=== PATIENT | male | born 1960 | race Caucasian/White ===

== ENCOUNTER 2021-07-12 02:31 | Emergency (ER) | payer MEDICARE, BC ==
[2021-07-12] MEDS ORDERED: Aspirin 81 MG Tab.Chew PO ONE ×2 (02:38→02:42)
[2021-07-12] MEDS ORDERED: hydrALAZINE 20 MG/ML SDV IVPUSH ONE (02:49)
--- NOTE | 2021-07-12 02:49 | EDM.PDOC ---
ED HPI GENERAL MEDICAL PROBLEM - General Stated Complaint: CHEST PAIN Time Seen by Provider: 07/12/21 02:35 Source of Information: Reports: Patient History Limitations: Reports: No Limitations - History of Present Illness INITIAL COMMENTS - FREE TEXT/NARRATIVE: 61-year-old gentleman came to the emergency department by private vehicle for evaluation of chest pain. He states that approximately 9 PM tonight he began to have a feeling of a pressure type of pain and points to the distal sternum. He states that he was not doing anything specific when the pain started. He has not tried anything to relieve the pain. He states that he forgot to take his blood pressure medication, valsartan, on Monday morning because he has been out camping and simply forgot but that he did take his blood pressure medication the previous day and days. He states that he did drink a little more beer than usual but has had no new foods. He has not had this type of chest pain in the past and does not have a history of GERD. He was able to go to sleep but he awoke with chest pain and mild diaphoresis and shortness of breath. He does have a CPAP and uses his CPAP nightly. He does take medication for hypertension, hyperlipidemia, and takes a baby aspirin daily but has no history of coronary artery disease. He does not have any significant family history of coronary artery disease. He is obese. He is able to lie flat at night and sleep flat. He is active in his job and has not had chest pain at work while active. Prior to this event he states that he has been in good health and has not had fever, chill, viral symptoms, cough, change in bowel or bladder habits. Middle Chest Pain Score (Numeric/FACES): 6 - Related Data Allergies Allergy/AdvReac Type Severity Reaction Status Date / Time No Known Allergies Allergy Verified 12/03/18 13:23 Home Meds: Home Meds Aspirin 81 mg PO DAILY 07/12/21 [History] Valsartan [Diovan] 40 mg PO DAILY 07/12/21 [History] atorvaSTATin [Lipitor] 10 mg PO BEDTIME 07/12/21 [History] ED ROS GENERAL - Review of Systems Review Of Systems: See Below Constitutional: Reports: No Symptoms HEENT: Reports: No Symptoms Respiratory: Reports: Shortness of Breath Cardiovascular: Reports: Chest Pain. Denies: PND Endocrine: Reports: No Symptoms GI/Abdominal: Reports: No Symptoms : Reports: No Symptoms Musculoskeletal: Reports: No Symptoms Skin: Reports: No Symptoms Neurological: Reports: No Symptoms Psychiatric: Reports: No Symptoms Hematologic/Lymphatic: Reports: No Symptoms Immunologic: Reports: No Symptoms ED EXAM, GENERAL - Physical Exam Exam: See Below Exam Limited By: No Limitations General Appearance: Alert, WD/WN, Anxious Eye Exam: Bilateral Eye: EOMI Head: Atraumatic, Normocephalic Neck: Normal Inspection. No: Lymphadenopathy (R), Lymphadenopathy (L) Respiratory/Chest: No Respiratory Distress, Lungs Clear, Normal Breath Sounds Cardiovascular: Regular Rate, Rhythm, No Gallop. No: No Edema GI/Abdominal: Normal Bowel Sounds, Non-Tender Back Exam: Normal Inspection. No: CVA Tenderness (R), CVA Tenderness (L) Extremities: Pedal Edema Neurological: Alert, Oriented, Normal Cognition Psychiatric: Anxious Skin Exam: Warm, Dry Course - Vital Signs Text/Narrative:: Review of labs and troponin x2 is negative. Incidental finding on lab work shows indication of likely fatty liver disease. Last Recorded V/S: Last Vital Signs Temp 36.7 C 07/12/21 02:45 Pulse 66 07/12/21 02:45 Resp 20 07/12/21 02:45 BP 140/76 07/12/21 02:45 Pulse Ox 100 07/12/21 02:45 - Orders/Labs/Meds Orders: Active Orders 24 hr Category Date Time Status EKG Documentation Completion [RC] ASDIRECTED Care 07/12/21 02:43 Active EKG 12 Lead [EK] Routine Ther 07/12/21 02:43 Ordered Labs: Laboratory Tests 07/12/21 07/12/21 07/12/21 Range/Units 02:45 02:45 02:45 WBC 9.0 (3.2-10.1) x10-3/uL RBC 4.69 (3.90-5.90) x10(6)uL Hgb 13.1 (12.9-17.7) g/dL Hct 38.8 (38.3-50.1) % MCV 82.6 (80.8-98.7) fL MCH 28.0 (27.0-33.3) pg MCHC 33.8 (28.7-35.3) g/dL RDW 15.5 H (12.4-15.0) % Plt Count 178 (117-477) x10(3)uL MPV 6.9 (6.7-11.0) fL Neut % (Auto) 75.3 H (40.3-71.8) % Lymph % (Auto) 14.0 L (15.8-45.3) % [place] % (Auto) 8.9 (5.5-15.2) % Eos % (Auto) 1.3 (0.1-6.8) % Baso % (Auto) 0.5 (0.3-3.8) % Neut # (Auto) 6.8 (1.7-6.9) x10-3/uL Lymph # (Auto) 1.3 (0.5-4.5) x10-3/uL [place] # (Auto) 0.8 (0.0-1.2) x10-3/uL Eos # (Auto) 0.1 (0.0-0.6) x10-3/uL Baso # (Auto) 0.0 (0.0-0.3) x10-3/uL Sodium 144 (135-145) mmol/L Potassium 4.6 (3.5-5.3) mmol/L Chloride 108 (100-110) mmol/L Carbon Dioxide 27 (21-32) mmol/L BUN 14 (7-18) mg/dL Creatinine 0.9 (0.70-1.30) mg/dL Est Cr Clr Drug Dosing TNP Estimated GFR (MDRD) > 60 (>60) BUN/Creatinine Ratio 15.6 (9-20) Glucose 124 H (80-116) mg/dL Calcium 8.5 L (8.6-10.2) mg/dL Total Bilirubin 2.1 H (0.1-1.3) mg/dL AST 104 H (5-25) IU/L ALT 93 H (12-36) U/L Alkaline Phosphatase 109 (56-112) IU/L Troponin I 5.7 (4.0-60.3) pg/mL NT-Pro-B Natriuret Pep 51 (<=125) pg/mL Total Protein 6.6 (6.0-8.0) g/dL Albumin 3.6 (3.2-4.6) g/dL Globulin 3.0 g/dL Albumin/Globulin Ratio 1.2 / Range/Units 05:55 WBC (3.2-10.1) x10-3/uL RBC (3.90-5.90) x10(6)uL Hgb (12.9-17.7) g/dL Hct (38.3-50.1) % MCV (80.8-98.7) fL MCH (27.0-33.3) pg MCHC (28.7-35.3) g/dL RDW (12.4-15.0) % Plt Count (117-477) x10(3)uL MPV (6.7-11.0) fL Neut % (Auto) (40.3-71.8) % Lymph % (Auto) (15.8-45.3) % [place] % (Auto) (5.5-15.2) % Eos % (Auto) (0.1-6.8) % Baso % (Auto) (0.3-3.8) % Neut # (Auto) (1.7-6.9) x10-3/uL Lymph # (Auto) (0.5-4.5) x10-3/uL [place] # (Auto) (0.0-1.2) x10-3/uL Eos # (Auto) (0.0-0.6) x10-3/uL Baso # (Auto) (0.0-0.3) x10-3/uL Sodium (135-145) mmol/L Potassium (3.5-5.3) mmol/L Chloride (100-110) mmol/L Carbon Dioxide (21-32) mmol/L BUN (7-18) mg/dL Creatinine (0.70-1.30) mg/dL Est Cr Clr Drug Dosing Estimated GFR (MDRD) (>60) BUN/Creatinine Ratio (9-20) Glucose (80-116) mg/dL Calcium (8.6-10.2) mg/dL Total Bilirubin (0.1-1.3) mg/dL AST (5-25) IU/L ALT (12-36) U/L Alkaline Phosphatase (56-112) IU/L Troponin I 6.0 (4.0-60.3) pg/mL NT-Pro-B Natriuret Pep (<=125) pg/mL Total Protein (6.0-8.0) g/dL Albumin (3.2-4.6) g/dL Globulin g/dL Albumin/Globulin Ratio Meds: Medications Discontinued Medications Generic Name Dose Route Start Last Admin Trade Name Ping PRN Reason Stop Dose Admin Aspirin 324 mg 07/12/21 02:38 07/12/21 02:42 Aspirin 81 Mg Tab.Chew PO 07/12/21 02:39 324 mg ONETIME ONE Administration Aspirin 324 mg 07/12/21 02:42 07/12/21 02:50 Aspirin 81 Mg Tab.Chew PO 07/12/21 02:43 Not Given ONETIME ONE Hydralazine HCl 10 mg 07/12/21 02:49 07/12/21 02:52 Hydralazine 20 Mg/Ml Sdv IVPUSH 07/12/21 02:50 10 mg ONETIME ONE Administration Departure - Departure Time of Disposition: 06:29 Disposition: Home, Self-Care 01 Condition: Good Clinical Impression: Acute coronary syndrome without high troponin, Elevated liver enzymes Instructions: Acute Coronary Syndrome, Decision Aid - Coronary Artery Disease Referrals: Ruth De Los Santos [employer]INTENA[employer] TECHNICIAN [Primary Care Provider] - Additional Instructions: I informed the patient of the labs that showed elevated liver enzymes and advised him to follow-up with his primary care physician. Patient advised to follow-up with his primary care physician immediately regarding likely acute coronary syndrome and need for evaluation by cardiology. Sepsis Event Note (ED) - Focused Exam Vital Signs: Vital Signs Temp Pulse Resp BP Pulse Ox 07/12/21 02:45 36.7 C 66 20 140/76 100 07/12/21 02:35 36.7 C 70 22 H 206/113 H 100 - My Orders Last 24 Hours: My Active Orders 07/12/21 02:43 EKG Documentation Completion [RC] ASDIRECTED EKG 12 Lead [EK] Routine - Assessment/Plan Last 24 Hours: My Active Orders 07/12/21 02:43 EKG Documentation Completion [RC] ASDIRECTED EKG 12 Lead [EK] Routine
--- NOTE | 2021-07-12 03:07 | PCM.EKG ---
#1 Interpretation EKG Date: 07/12/21 Time: 02:28 EKG Interpretation Comments: Normal sinus rhythm, normal axis, rate 66, no obvious ST-T segment abnormalities
== END 2021-07-12 06:43 | disposition home or self-care (01) ==
LOC: FB.ED 02:31
DX: I24.9 Acute ischemic heart disease, unspecified (principal); R60.0 Localized edema; R74.8 Abnormal levels of other serum enzymes; Z79.899 Other long term (current) drug therapy
CPT/HCPCS: 36415; 80053; 83880; 84484; 85025; 93005; 96374; 99285; A9270; J0360

== ENCOUNTER 2021-09-08 10:32 | Day surgery (SDC) | payer MEDICARE, BC ==
[~2021-09-08 10:32] MED LIST: Acetaminophen 500 MG Tab PO ONE; Albuterol/Ipratropium 3.0-0.5 MG/3 ML Neb Soln NEB ONE; Lactated Ringers 1,000 ML IV SCH; Ondansetron 8 MG Tab.DIS PO ONE; Sodium Chloride 0.9% 10 ML Syringe FLUSH PRN
[2021-09-08] MEDS ORDERED: Neostigmine Methylsulfate 10 MG/10 ML MDV IVPUSH ONE (10:33)
[2021-09-08] MEDS ORDERED: Glycopyrrolate 0.2 MG/ML 5 ML MDV IV ONE (10:33)
[2021-09-08] MEDS ORDERED: hydrALAZINE 20 MG/ML SDV IVPUSH ONE (10:33)
[2021-09-08] MEDS ORDERED: Lactated Ringers 1,000 ML IV ONE (10:33)
[2021-09-08] MEDS ORDERED: Succinylcholine 200 MG/10 ML MDV IV ONE (10:33)
[2021-09-08] MEDS ORDERED: Lidocaine 2% 5 ML SDV INJECT ONE (10:33)
[2021-09-08] MEDS ORDERED: HYDROmorphone 2 MG/ML SDV IV ONE (10:33)
[2021-09-08] MEDS ORDERED: Rocuronium 100 MG/10 ML MDV IV ONE (10:33)
[2021-09-08] MEDS ORDERED: Dexamethasone 4 MG/ML 5 ML MDV IVPUSH ONE (10:33)
[2021-09-08] MEDS ORDERED: Propofol 200 MG/20 ML SDV IV ONE (10:33)
[2021-09-08] MEDS ORDERED: Midazolam 1 MG/ML 2 ML SDV IV ONE (10:33)
[2021-09-08] MEDS ORDERED: Ondansetron 4 MG/2 ML SDV IVPUSH ONE (10:33)
--- NOTE | 2021-09-08 12:18 | PCM.PN ---
- General Info Date of Service: 09/08/21 - Review of Systems Systems Review Comment:: 61 y/o male with history of gallstones here for cholecystectomy. He is medically stable to proceed with no recent significant changes to his health status. I have discussed again the proposed cholecystectomy and instructions and expectations. He agrees to proceed accepting risks. - Patient Data Vitals - Most Recent: Last Vital Signs Temp 97.2 F 09/08/21 10:59 Pulse 57 L 09/08/21 10:59 Resp 16 09/08/21 10:59 BP 121/73 09/08/21 10:59 Pulse Ox 96 09/08/21 10:59 Weight - Most Recent: 280 lb 13.903 oz Med Orders - Current: Current Medications Lactated Ringer's (Ringers, Lactated) 1,000 mls @ 125 mls/hr IV ASDIRECTED FERCHO Last Admin: 09/08/21 11:16 Dose: 125 mls/hr Documented by: Cefazolin Sodium 3 gm/ Sodium (Chloride) 100 mls @ 200 mls/hr IV ONETIME ONE Stop: 09/08/21 12:29 Last Admin: 09/08/21 11:23 Dose: 200 mls/hr Documented by: Sodium Chloride (Sodium Chloride 0.9% 10 Ml Syringe) 10 ml FLUSH ASDIRECTED PRN PRN Reason: Keep Vein Open Discontinued Medications Acetaminophen (Acetaminophen 500 Mg Tab) 1,000 mg PO ONETIME ONE Stop: 09/08/21 10:31 Last Admin: 09/08/21 11:05 Dose: 1,000 mg Documented by: Albuterol/Ipratropium (Albuterol/Ipratropium 3.0-0.5 Mg/3 Ml Neb Soln) 3 ml NEB ONETIME ONE Stop: 09/08/21 10:31 Last Admin: 09/08/21 11:06 Dose: 3 ml Documented by: Ondansetron HCl (Ondansetron 8 Mg Tab.Dis) 8 mg PO ONETIME ONE Stop: 09/08/21 10:31 Last Admin: 09/08/21 11:04 Dose: 8 mg Documented by: Sepsis Event Note - Focused Exam Vital Signs: Vital Signs Temp Pulse Resp BP Pulse Ox 09/08/21 10:59 97.2 F 57 L 16 121/73 96 - Problem List Review Problem List Initiated/Reviewed/Updated: Yes - My Orders Last 24 Hours: My Active Orders 09/07/21 12:20 Resuscitation Status Routine 09/08/21 Breakfast Nothing Per Oral Diet [DIET] 09/08/21 10:30 Patient Status [ADT] Routine Patient to Empty Bladder [RC] ASDIRECTED Verify Patient Consent Obtain [RC] ASDIRECTED Lactated Ringers [Ringers, Lactated] 1,000 ml IV ASDIRECTED Sodium Chloride 0.9% [Saline Flush] 10 ml FLUSH ASDIRECTED PRN Peripheral IV Insertion Adult [OM.PC] Routine Sequential Compression Device [OM.PC] Routine 09/08/21 12:00 ceFAZolin [Ancef] 3 gm Sodium Chloride 0.9% [Normal Saline] 100 ml IV ONETIME - Assessment Assessment:: Cholelithiasis - Plan Plan:: Cholecystectomy
[2021-09-08] MEDS ORDERED: Bupivacaine 0.5%/EPINEPHrine 1:200,000 10 ML SDV INJECT ONE (12:24)
--- NOTE | 2021-09-08 13:57 | PCM.OPNOTE ---
- General Post-Op/Procedure Note Date of Surgery/Procedure: 09/08/21 Operative Procedure(s): Laparoscopic Cholecystectomy Findings: Gallbladder with chronic inflammation and multiple small black stones Pre Op Diagnosis: Symptomatic Cholelithiasis Post-Op Diagnosis: Chronic Cholecystitis with Cholelithiasis Anesthesia Technique: MAC Primary Surgeon: Song Purcell Pathology: Gallbladder with stones EBL in mLs: 30 Complications: None Condition: Good
[2021-09-08] MEDS ORDERED: Acetaminophen/HYDROcodone 325-5 MG Tab PO ONE (14:32)
--- NOTE | 2021-09-08 16:14 | OR ---
DATE OF OPERATION: 09/08/2021 SURGEON: Song Purcell MD PREOPERATIVE DIAGNOSIS: Symptomatic cholelithiasis. POSTOPERATIVE DIAGNOSIS: Chronic cholecystitis with cholelithiasis. OPERATION PERFORMED: Laparoscopic cholecystectomy. INDICATIONS FOR SURGERY: This 61-year-old male has a known history of symptomatic cholelithiasis and comes for cholecystectomy. FINDINGS: The patient's gallbladder does show evidence of chronic inflammation. There is dense adherence of the gallbladder to the liver bed. The gallbladder does contain multiple small black stones. No other abnormalities are noted laparoscopically. PROCEDURE: The patient was taken to the operating room. He was given general endotracheal anesthesia, and the abdomen was sterilely prepped and draped. A supraumbilical stab wound incision was made. Through this, a Veress needle was inserted and pneumoperitoneum via this needle to a pressure of 15 mmHg was achieved with carbon dioxide. The Veress needle was then replaced with a 12 mm trocar into which the 5 mm variable angled laparoscopic camera was inserted. Under direct visualization, 5 mm trocars were placed in the subxiphoid midline and in two areas of the right abdomen. All trocar sites were infiltrated with Marcaine prior to incision. Intra-abdominal inspection was carried out and attention was turned to the gallbladder. It was secured with grasping forceps and retracted superiorly and anteriorly. Fatty tissue and peritoneal lining over the lower portion of the gallbladder and cystic duct were carefully cleared until the cystic duct was identified. Additional dissection in the triangle of Calot identified the cystic artery along with an adjacent lymph node, and both of these structures were isolated, doubly clipped, and divided. Once the triangle of Calot had been cleared and the cystic duct had been clearly identified including its junction with the gallbladder, it was milked and it was doubly clipped and divided near the gallbladder with great care being used to avoid any injury or compromise to the common bile duct. The gallbladder was then dissected free from the undersurface of the liver using the hook cautery device. Dissection was somewhat difficult because of the dense adherence of the gallbladder to the liver bed, but eventually, it was able to be removed intact. The gallbladder was then extracted through the umbilical trocar site. This did require opening the gallbladder extra-abdominally and extracting bile and stones to decompress the gallbladder. After this had been completed, reinspection of the operative region was performed. Good hemostasis of the gallbladder bed was assured with cautery and the region was copiously irrigated. In order to further assure complete hemostasis, a powdered anticoagulant was placed on the gallbladder bed. With no sign of any bleeding or any other complication, the trocars were removed under direct visualization and the pneumoperitoneum was evacuated. The fascia of the umbilical trocar site was closed with a figure-of- eight 0 Vicryl suture. Wounds were irrigated with Betadine and saline solution. Skin incisions were approximated with interrupted 4-0 Vicryl subcuticular stitch. Steri-Strips and benzoin followed by antibiotic ointment and sterile dressings were placed. The patient was awakened, extubated, and taken from the operating room in satisfactory condition. ESTIMATED BLOOD LOSS: 30 mL. COMPLICATIONS: None. PROGNOSIS: Good. /[id number]
== END 2021-09-08 15:06 | disposition home or self-care (01) ==
LOC: FB.SDS 10:32
PROVIDERS: ATTEND Surgery
DX: K80.10 Calculus of gallbladder with chronic cholecystitis without obstruction (principal); I10 Essential (primary) hypertension; E78.5 Hyperlipidemia, unspecified; G47.33 Obstructive sleep apnea (adult) (pediatric); J45.20 Mild intermittent asthma, uncomplicated; E66.9 Obesity, unspecified; M17.11 Unilateral primary osteoarthritis, right knee; N52.9 Male erectile dysfunction, unspecified; Z98.890 Other specified postprocedural states; Z79.899 Other long term (current) drug therapy; Z87.891 Personal history of nicotine dependence; Z68.38 Body mass index [BMI] 38.0-38.9, adult
CPT/HCPCS: 00790-QZ; 88304; A9270-GY; J0330; J0360; J0690; J1100; J1170; J2250; J2405; J2704; J2710; J3490; J7120; J7620-GY